=== PATIENT | male | born 1980 | race Native Hawaiian/Other Pacific Islander ===

== ENCOUNTER 2017-06-23 11:39 | Emergency (ER) | payer OTHER ==
[~2017-06-23] VITALS: Ht 177.8 cm; Wt 90.9 kg
[2017-06-23 11:55] VITALS: TEMP 97.9
[2017-06-23 12:35] VITALS: BP 118/60
== END 2017-06-23 12:45 | disposition home or self-care (01) ==
LOC: ED 11:39
DX: M54.9 Dorsalgia, unspecified (principal)
CPT/HCPCS: 99282

== ENCOUNTER 2019-08-11 07:40 | Emergency (ER) | payer OTHER ==
[~2019-08-11] VITALS: Ht 177.8 cm; Wt 90.7 kg
[2019-08-11 07:49] VITALS: BP 107/68; TEMP 98.5
== END 2019-08-11 08:20 | disposition home or self-care (01) ==
LOC: ED 07:40
DX: S90.822A Blister (nonthermal), left foot, initial encounter (principal); L08.89 Other specified local infections of the skin and subcutaneous tissue
CPT/HCPCS: 99281

== ENCOUNTER 2019-09-28 20:23 | Emergency (ER) | payer OTHER ==
[~2019-09-28] VITALS: Ht 177.8 cm; Wt 79.4 kg
[2019-09-28 20:56] LABS: PLATELET COUNT 171 K/uL (142-355)
[2019-09-28 21:08] LABS: POTASSIUM 3.6 mmol/L (3.6-5.2)
[2019-09-28 22:00] LABS: PARTIAL THROMBOPLASTIN TIME 24.4 SECONDS (24.5-33.6)
[2019-09-29 07:55] VITALS: BP 112/69
== END 2019-09-29 08:05 | disposition short-term general hospital (02) ==
LOC: ED 20:23
PROVIDERS: General Practice
DX: M54.6 Pain in thoracic spine (principal); V89.0XXA Person injured in unspecified motor-vehicle accident, nontraffic, initial encounter; Y92.89 Other specified places as the place of occurrence of the external cause
CPT/HCPCS: 36415; 80053; 80307; 80320; 81000; 85027; 85610; 85730; 96360; 96372; 99284; J1200; J1630; J2060; Q9963